=== PATIENT | male | born 1935 | race Caucasian/White ===

== ENCOUNTER 2020-05-24 09:58 | Outpatient (CLI) | payer MEDICARE, OTHER, SELFPAY ==
--- NOTE | ~2020-05-24 | DEXA_ITS ---
Bone Density Report Name: Mauricio Celeste Age: 85 Sex: Male Ethnicity: White Date of : 1935 Indication: osteopenia; monitoring treatment; parental hip fracture; Referring Provider: IGOR LOPEZ Study: Bone densitometry was performed. Exam Date: May 24, 2020 Accession number: [id number] Bone Density: Region BMD T-score Z-score Classification AP Spine (L1-L4) 0.968 -1.1 0.2 Osteopenia Femoral Neck (Left) 0.738 -1.4 0.3 Osteopenia Total Hip (Left) 0.959 -0.5 0.7 Normal Total Hip Bilateral Avg 0.980 -0.4 0.8 Normal Femoral Neck (Right) 0.767 -1.2 0.5 Osteopenia Total Hip (Right) 1.000 -0.2 1.0 Normal World Health Organization criteria for BMD impression classify patients as: Normal (T-score at or above -1.0), Osteopenia (T-score between -1.0 and -2.5), or Osteoporosis (T-score at or below -2.5). 10-year Fracture Risk: FRAX not reported because: Treated for osteoporosis Previous Exams: Region Exam Age BMD T-score BMD Change BMD Change Date g/cm2 vs Baseline vs Previous AP Spine(L1-L4) 05/24/2020 85 0.968 -1.1 -0.032(-3.2%)# 0.015(1.6%) 09/15/2014 79 0.953 -1.3 -0.047(-4.7%)# -0.062(-6.1%)# 10/21/2010 75 1.015 -0.7 0.015(1.5%) 0.015(1.5%) 02/17/2008 72 1.000 -0.8 Total Hip(Left) 05/24/2020 85 0.959 -0.5 -0.006(-0.6%)# -0.012(-1.2%) 09/15/2014 79 0.972 -0.4 0.006(0.7%)# -0.008(-0.9%)# 10/21/2010 75 0.980 -0.4 0.015(1.5%) 0.015(1.5%) 02/17/2008 72 0.965 -0.4 Total Hip(Right) 05/24/2020 85 1.000 -0.2 0.033(3.4%)# 0.028(2.8%)* 09/15/2014 79 0.972 -0.4 0.005(0.5%)# 0.004(0.4%)# 10/21/2010 75 0.968 -0.4 0.001(0.1%) 0.001(0.1%) 02/17/2008 72 0.967 -0.4 *Denotes significance at 95% confidence level, LSC for AP Spine = 0.022 g/cm2, LSC for Total Hip = 0.027 g/cm2 Clinical Information Provided by Patient: Parent has had a hip fracture Is being treated for osteoporosis Has used the following medications: Fosamax (i.e. alendronate) Patient maximum height was 67 Drinks caffeinated beverages Impression: The patient has low bone mass, based on the Left Femoral Neck T-score. The patient has risk factors, including: parental hip fracture. No significant bone loss was observed. Discussion: PATIENT UNDER TREATMENT WITH NO SIGNIFICANT BMD LOSS SINCE LAST EXAM. In an untreated patient, BMD typically declines with age. A lack of decline or gain is usually a sign t
== END 2020-05-24 09:59 | disposition home or self-care (01) ==
PROVIDERS: PCP Internal Medicine; Visit Provider Nurse Practitioner
DX: M81.0 Age-related osteoporosis without current pathological fracture (principal); M85.88 Other specified disorders of bone density and structure, other site; M85.852 Other specified disorders of bone density and structure, left thigh; M85.851 Other specified disorders of bone density and structure, right thigh
CPT/HCPCS: 77080

== ENCOUNTER → 2021-03-19 15:26 | Outpatient (REF) | payer MEDICARE, OTHER, SELFPAY | LOC: ANHLAB 15:26 | PROVIDERS: PCP Internal Medicine; Visit Provider Nurse Practitioner | DX: C44.41 Basal cell carcinoma of skin of scalp and neck (principal) | CPT/HCPCS: 88305 ==

== ENCOUNTER → 2021-05-13 09:55 | Outpatient (REF) | payer MEDICARE, OTHER, SELFPAY | LOC: ANHLAB 09:55 | PROVIDERS: PCP Internal Medicine; Visit Provider Nurse Practitioner | DX: C44.41 Basal cell carcinoma of skin of scalp and neck (principal) | CPT/HCPCS: 88305; 88331 ==

== ENCOUNTER 2021-05-21 08:36 | Outpatient (CLI) | payer MEDICARE, OTHER, SELFPAY ==
[2021-05-21 09:45] LABS: Hemoglobin A1C 8.5 % (<5.7)
[2021-05-21 09:46] LABS: Alanine Aminotransferase 25 U/L (4-50); Albumin Level 3.8 g/dL (3.5-5.1); Anion Gap 8 mmol/L (8-16); Aspartate Amino Transferase 26 U/L (17-59); Bilirubin,Total 0.6 mg/dL (0.2-1.3); Blood Urea Nitrogen 14 mg/dL (9-20); Calcium 9.1 mg/dL (8.4-10.2); Carbon Dioxide 28 mmol/L (22-30); Chloride 101 mmol/L (98-107); Estimated Glomerular Filt Rate > 60; Glucose 168 mg/dL (65-110); Potassium 4.5 mmol/L (3.4-5.0); Sodium 137 mmol/L (137-145)
[2021-05-21 09:47] LABS: Alkaline Phosphatase 67 U/L (38-126); Cholesterol 176 mg/dL (0-200); HDL Direct 42 mg/dL; Triglycerides 194 mg/dL (<150)
[2021-05-21 09:58] LABS: LDL Cholesterol Direct 84 mg/dL
[2021-05-21 10:41] LABS: Vitamin D 25 Hydroxy 43.2 ng/mL
== END 2021-05-21 08:37 | disposition home or self-care (01) ==
PROVIDERS: PCP Internal Medicine; Visit Provider Internal Medicine
DX: E11.9 Type 2 diabetes mellitus without complications (principal); E78.5 Hyperlipidemia, unspecified; I10 Essential (primary) hypertension; Z79.899 Other long term (current) drug therapy; E55.9 Vitamin D deficiency, unspecified
CPT/HCPCS: 36415; 80053; 80061; 82306; 83036

== ENCOUNTER 2021-11-04 11:18 | Outpatient (CLI) | payer MEDICARE, OTHER, SELFPAY ==
[2021-11-04 11:58] LABS: Alanine Aminotransferase 22 U/L (4-50); Alkaline Phosphatase 61 U/L (38-126); Anion Gap 10 mmol/L (8-16); Aspartate Amino Transferase 24 U/L (17-59); Bilirubin,Total 0.5 mg/dL (0.2-1.3); Blood Urea Nitrogen 17 mg/dL (9-20); Calcium 9.3 mg/dL (8.4-10.2); Carbon Dioxide 24 mmol/L (22-30); Chloride 102 mmol/L (98-107); Cholesterol 162 mg/dL (0-200); Estimated Glomerular Filt Rate > 60; Glucose 163 mg/dL (65-110); HDL Direct 47 mg/dL; Hemoglobin A1C 8.4 % (<5.7); Potassium 4.6 mmol/L (3.4-5.0); Sodium 136 mmol/L (137-145); Triglycerides 156 mg/dL (<150)
[2021-11-04 12:09] LABS: LDL Cholesterol Direct 84 mg/dL
== END 2021-11-04 11:19 | disposition home or self-care (01) ==
LOC: ANHLAB 11:25
PROVIDERS: PCP Internal Medicine; Visit Provider Nurse Practitioner
DX: E78.5 Hyperlipidemia, unspecified (principal); E11.9 Type 2 diabetes mellitus without complications
CPT/HCPCS: 36415; 80053; 80061; 83036

== ENCOUNTER 2023-03-14 14:06 | Inpatient (IN) | payer MEDICARE, OTHER, SELFPAY ==
[2023-03-14] VITALS (14 sets, daily range): BP systolic 101–130; BP diastolic 50–68; PULSE 64–88; RESP 14–20; TEMP 36.2–36.8; O2SAT 96–100; BMI 23.4
--- NOTE | ~2023-03-14 | US_ITS ---
EXAMINATION: US thoracentesis DATE: 03/15/2023 11:10 INDICATION: Left pleural effusion TECHNIQUE: The procedure and its risks and benefits were discussed with the patient's son. Potential risks discussed included bleeding, infection, and pneumothorax. The patient's son understood the risk s and agreed to proceed. The skin was prepared and draped in sterile fashion. 1% lidocaine was used f or local anesthesia. Under ultrasound guidance, a 5 Fr catheter with trochar was advanced into the le ft pleural effusion. Fluid was aspirated. The catheter was removed, and a dressing was applied. There were no immediate complications. FINDINGS: Ultrasound images demonstrate a left pleural effusion and the catheter within the fluid. IMPRESSION: 1. Successful ultrasound-guided thoracentesis yielding 1000 mL of clear yellow fluid. Reviewed, dictated and finalized at location A.
--- NOTE | ~2023-03-14 | XR_ITS ---
EXAMINATION: XR chest 1V portable Exam Date/Time: 03/14/2023 14:45 CDT HISTORY: weakness LOW O2 SATURATIONS Comparison: 03/28/2019. RESULT: Lines, tubes, and devices: None. Lungs and pleura: Mid and lower lung opacity on the left with significant lateral costophrenic angle blunting. Cardiomediastinal silhouette: Stable. Other: No acute osseous or upper abdominal finding. IMPRESSION: Large left pleural effusion. Left basilar atelectasis. Infection not excluded. Reviewed, dictated and finalized at location K.
--- NOTE | ~2023-03-14 | XR_ITS ---
EXAMINATION: [id number] DATE: 03/15/2023 11:02 INDICATION: Left pleural effusion, status post thoracentesis TECHNIQUE: AP and lateral views of the chest are obtained. COMPARISON: 03/14/2023 FINDINGS: There is a moderate-sized left pleural effusion with slight decrease in size postthoracente sis. Associated airspace opacities of the left mid and lower lung zone are stable. No pneumothorax is identified. The cardiac silhouette is obscured by the pleural effusion. There is moderate osteoarthr itis of the shoulders. There is moderate thoracic spondylosis. IMPRESSION: 1. Moderate size left pleural effusion slightly decreased in size postthoracentesis. No pneumothorax. 2. Stable airspace opacity of the left mid and lower lung zone, likely passive atelectasis. Reviewed, dictated and finalized at location A. IMPRESSION: 1. Moderate size left pleural effusion slightly decreased in size postthoracent esis. No pneumothorax. 2. Stable airspace opacity of the left mid and lower lung zone, likely passive atelectasis.
--- NOTE | ~2023-03-14 | US_ITS ---
EXAMINATION: US renal BI DATE: 03/15/2023 11:11 INDICATION: Acute kidney injury TECHNIQUE: Multiple grayscale and Doppler ultrasound images of the kidneys were obtained. COMPARISON: None. FINDINGS: The right kidney measures 10.2 x 4.6 x 5.6 cm. The left kidney measures 9.9 x 4.8 x 5.8 cm. The kidneys demonstrate normal parenchymal echogenicity. There is no hydronephrosis. The bladder is normal. IMPRESSION: 1. Normal kidneys without hydronephrosis. Reviewed, dictated and finalized at location A.
--- NOTE | ~2023-03-14 | CT_ITS ---
EXAMINATION: CT diagnostic chest wo con DATE: 03/14/2023 17:11 INDICATION: left pleural effusion TECHNIQUE: Computed tomography (CT) of the chest was performed with 100 mL Omnipaque-350 intravenous contrast. Automated exposure control and iterative reconstruction technique were employed. The dose-l ength product was 386.81 mGy-cm. COMPARISON: X-ray chest, same date. FINDINGS: CHEST: Thoracic aorta: No significant dilation. Moderate arch calcification. Lung parenchyma and airways: Considerable volume loss with consolidation in the left lower lobe. Depe ndent atelectasis in the left upper lobe. Thoracic inlet, axillae and chest wall: No thyroid or soft tissue mass. No axillary lymphadenopathy. Mediastinum: No mass or lymphadenopathy. Heart and pericardium: Mild cardiomegaly. No pericardial effusion. Coronary artery calcifications: Mild. Pleura: Large volume left pleural fluid collection, 7 Hounsfield unit density, no definite loculation . No definite pleural mass, but this determination is difficult without contrast. Upper abdomen: No significant finding. Thoracic bones: No acute osseous finding in the chest. IMPRESSION: Large volume, fluid density, nonloculated left pleural effusion. Significant left lower lobe consolid ation, likely representing atelectasis given the significant volume loss, noting that infection canno t be excluded by imaging. Reviewed, dictated and finalized at location K. IMPRESSION: Large volume, fluid density, nonloculated left pleural effusion. Significant le ft lower lobe consolidation, likely representing atelectasis given the signific ant volume loss, noting that infection cannot be excluded by imaging.
--- NOTE | 2023-03-14 14:18 | ECG_ITS ---
Measurements Intervals [place] Rate: 62 P: 44 [place]: 187 QRS: -42 QRSD: 86 T: 29 QT: 398 QTc: 405 Interpretive Statements SINUS RHYTHM VENTRICULAR PREMATURE COMPLEX INCOMPLETE RIGHT BUNDLE BRANCH BLOCK LOW QRS VOLTAGE IN PRECORDIAL LEADS BORDERLINE T WAVE ABNORMALITY- ANT/INF LEADS BASELINE ARTIFACT- I, II, III, AVR, AVF, V5 BORDERLINE ECG COMPARED TO ECG 03/28/2019 17:59:30 NO SIGNIFICANT CHANGES Electronically Signed On 03-14-2023 17:50:23 CDT by Zaki Herrmann D.O.
--- NOTE | 2023-03-14 14:42 | ED.GENADULT ---
HPI - General Adult General Chief complaint: Recheck/Abnormal Lab/Rx Stated complaint: low oxygen level Time Seen by Provider: 03/14/23 14:13 History of Present Illness HPI narrative: 87-year-old male presenting to the emergency department for evaluation of possible low oxygen. pen[facility]entiary states that they had a pulse ox of 50% on room air. EMS was called. When EMS arrived patient's pulse ox was stable in the high 90s. Upon arrival to the ED patient's pulse ox was 99% on room air. Patient denies any pain or complaints. Family was concerned because they state he has had increased weakness over the past few days. Patient denies any complaints at this time. Patient denies any weakness and denies any shortness of breath. Family did want the patient transferred for work due to the increased weakness. Related Data Home Medications Medication Instructions Recorded Confirmed krill 1,000 cap PO DAILY 03/19/21 03/14/23 [id number] 1,500 mg-165 mg-67.5 mg capsule (Krill Oil ([place] 3 and 6)) amlodipine 5 mg tablet 5 mg PO DAILY 03/14/23 03/14/23 buspirone 10 mg tablet 10 mg PO BID 03/14/23 03/14/23 donepezil 10 mg tablet 5 mg PO BID 03/14/23 03/14/23 losartan 100 mg tablet 100 mg PO DAILY 03/14/23 03/14/23 Allergies Allergy/AdvReac Type Severity Reaction Status Date / Time iodine Allergy Mild Hives Verified 03/14/23 14:06 SHELLFISH Allergy Mild hives Uncoded 03/14/23 14:06 Review of Systems Review of Systems: All systems reviewed & are unremarkable except as noted in HPI and below PMFSH Family History Family History Father Family history of primary malignant neoplasm of liver Mother Family history of malignant neoplasm of uterus Social History Social History Smoking status: Former smoker Alcohol intake: current Substance use: never Substance use type: does not use Lack of Transportation: No Lack of Food: Never True Current Housing: I Have Housing Concerned About Future Housing: No Difficulty Paying Gas/Electric Bills: No Difficulty Paying for Meds: No Currently Unemployed: No Education: Don't Know Difficulty w/ Childcare or Family Care: No Living arrangements: with family Occupation/Education: retired Gender identity (if verbalized by the patient): Male Sexual Orientation (if Verbalized by the Patient): Straight or Heterosexual Spiritual care concerns: No Exam Narrative: APPEARANCE: Well appearing, no pain, no distress, well-nourished. HEAD: normocephalic, atraumatic. EYES: PERRLA/EOMI, conjunctivae clear. NOSE: Normal no drainage NECK: Supple. No adenopathy, no masses. RESPIRATORY: Airway patent, respirations nonlabored. Clear to auscultation bilaterally, no rales, rhonchi, wheezing. CARDIOVASCULAR: Regular rate and rhythm without murmurs rubs or gallops. ABDOMINAL: Soft, nontender, nondistended, normal bowel sounds MUSCULOSKELETAL: Moves all extremities. Strength/ROM intact, No edema, No calf tenderness. NEURO: Alert. Cranial nerves II through XII intact. Grossly intact SKIN: Warm, dry. Normal Color Course Course Emergency Course: 87-year-old male presenting for evaluation of hypoxia and increased generalized weakness. Patient has not been hypoxic in the emergency room. Patient is afebrile with no leukocytosis. Patient's hemoglobin is stable at 12.1. Patient does have a new [place] with a creatinine of 2.7. UA shows no evidence of urinary tract infection and patient was negative for COVID influenza RSV. Chest x-ray did show a large left-sided pleural effusion. CT without contrast was ordered to further evaluate the pleural effusion. CT showed large volume fluid density nonloculated left pleural effusion with some left lower lobe consolidation. CT could not exclude infection but patient is afebrile with no leukocytosis. Patient w
[2023-03-14 15:04] LABS: Basophils Percent Auto 0.1 % (0.2-1.2); Eosinophils Percent Auto 0.5 % (0-4.4); Hematocrit 38.1 % (42.0-52.0); Hemoglobin 12.1 g/dL (14.0-18.0); Immature Granulocyte Absolute 0.11 K/mm3 (0.00-0.031); Immature Granulocyte Percent A 1.5 % (0-0.5); Immature Platelet Fraction Pct 14.8 % (0.9-11.2); Lymphocytes Absolute Auto 1.24 K/mm3 (0.9-3.2); Lymphocytes Percent Auto 16.8 % (18.3-44.2); Mean Corpuscular HGB Conc 31.8 g/dl (32-36); Mean Corpuscular Hemoglobin 32.7 pg (26-34); Mean Platelet Volume 12.9 fl (7.4-10.4); Monocytes Percent Auto 13.5 % (2.6-8.5); Neutrophils Percent Auto 67.6 % (45.5-73.1); Platelet Count Result 183 k/mm3 (150-375); Red Cell Distribution Width 14.3 % (11.5-14.5); White Blood Count 7.4 K/mm3 (4.5-10.0)
[2023-03-14 15:17] LABS: Alanine Aminotransferase 34 U/L (6-50); Albumin Level 4.2 g/dL (3.5-5.1); Alkaline Phosphatase 61 U/L (38-126); Anion Gap 13 mmol/L (8-16); Aspartate Amino Transferase 25 U/L (17-59); Bilirubin,Total 0.4 mg/dL (0.2-1.3); Blood Urea Nitrogen 48 mg/dL (9-20); Calcium 8.7 mg/dL (8.4-10.2); Carbon Dioxide 21 mmol/L (22-30); Chloride 103 mmol/L (98-107); Estimated CRCL calculation 17 ml/min; Estimated Glomerular Filt Rate 23; Glucose 180 mg/dL (65-110); Potassium 4.5 mmol/L (3.4-5.0); Sodium 137 mmol/L (137-145)
[2023-03-14 15:35] LABS: Influenza A QL RT-PCR Negative (Negative); Influenza B QL RT-PCR Negative (Negative); RSV RNA, RT-PCR Negative (Negative); SARS-CoV-2 RNA PCR Negative (Negative)
[2023-03-14] MEDS: SODIUM CHLORIDE 0.9% IV 1,000 ML 999 ML IV CONT (15:40)
[2023-03-14 17:38] LABS: Appearance Urine Cloudy (Clear); Bacteria Urine None Seen /hpf; Bilirubin Urine Negative (Negative); Blood Urine Negative (Negative); Color Urine Yellow (Yellow); Glucose Urine UA Negative (Negative); Ketones Urine Trace mg/dL (Negative); Leukocyte Esterase Ur Negative LEU/UL (Negative); Need Manual Microscopic Reviewed; Nitrate Urine Negative (Negative); Protein Urine Negative (Negative); RBC Urine 0-2 /hpf (0-2); Specific Grav Ur 1.019 (1.001-1.035); Squamous Epithelial Cell Urine None seen /hpf (Few); Urobilinogen Urine 0.2 mg/dL (<2.0); WBC Urine 0-5 /hpf
[2023-03-14 17:40] LABS: Add Urine Microscopic? YES
--- NOTE | 2023-03-14 18:17 | ADMGEN ---
This patient, Mauricio Celeste, was admitted to [facility] Surg Room 306-02 @ 1817. Patient/family oriented to hospital policies and general routines including ID bracelet, bed and alarms, visiting hours, pain management, procedures, bathroom and other care routines, personal items, smoking policy, room service/diet, and visiting hours. Information on how to activate the Rapid Response Team has been discussed. Patient/Family are encouraged to report perceived risks to care and to ask questions if they do not understand what they are told or what they should do.
--- NOTE | 2023-03-14 18:18 | PM.IMHP ---
H&P: HPI History of Present Illness Date/Time: 03/14/23 17:50 Chief Complaint: Low oxygen saturation. Narrative: This is an 87-year-old male with with dementia, diabetes, hypertension, and hyperlipidemia who presented to the emergency department via EMS from [facility] for evaluation low oxygen saturations. The patient is not the best historian due to his underlying dementia and some of the following history is supplemented via a review of his electronic medical records as well as discussions with his daughter Sherrie was at bedside, with the patient's permission. Sherrie sees her dad every week and over the past 3 weeks or so she reports that he has been going downhill. By that she means that he has not been eating well and is occasionally refusing food though he denies nausea and vomiting. He will eat if they go out for lunch or dinner somewhere, however. He has lost about 30 lb and he seems to be getting progressively more weak. This morning he reportedly had a pulse ox of 50% on room air and on EMS arrival he was 99% on room air. Family members requested that he be brought in for evaluation due to his recent decline. He was told to push the fluids by the nurse practitioner at his [facility] as he was likely dehydrated. Quintanilla catheter inserted in the ED yielded only 160 mL of urine. He has not been started on any recent medications and his metformin was discontinued due to the increase in his creatinine. Chest x-ray showed a large pleural effusion and a subsequent chest CT showed a large, non loculated left pleural effusion with significant left lower lobe consolidation likely representing atelectasis however infection cannot be excluded. In the ED he was given a L of normal saline and he is being admitted in this setting for evaluation of the pleural effusion, kidney injury, and weight loss. At the time my evaluation he does not have any specific complaints and he denies headache, fever, chills, sweats, cold and flu symptoms, chest pain, shortness a breath, epigastric and abdominal pain, bloating, belching, nausea, vomiting, dysuria, diarrhea, melena, and hematochezia. Review of Systems Review of Systems: Twelve systems were negative except for as per HPI. 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 History of cataract extraction Family History Family History Father Family history of primary malignant neoplasm of liver Mother Family history of malignant neoplasm of uterus Social History Social History (Updated 03/14/23 @ 22:31 by Marlen Miles PA-C) Social History: Healthcare power of corporate attorney: Carlos Celeste, reyes. Code status: Full code. Smoking status: Former smoker Alcohol intake: current Alcohol use details: Occasional wine. Substance use: never Substance use type: does not use Lack of Transportation: No Lack of Food: Never True Current Housing: I Have Housing Concerned About Future Housing: No Difficulty Paying Gas/Electric Bills: No Difficulty Paying for Meds: No Currently Unemployed: No Education: Don't Know Difficulty w/ Childcare or Family Care: No Living arrangements: with family Additional living arrangements comments: Resident at [facility]. Occupation/Education: retired Spiritual care concerns: No Meds Home Medications and Allergies Home Medications Medication Instructions Recorded Confirmed Type krill 1,000 cap PO DAILY 03/19/21 03/14/23 History [id number]-astax 1,500
--- NOTE | 2023-03-14 23:11 | PC.NURSE ---
PT. is confused and needs to be constantly reminded he is in the hospital. Pt. has pulled out his IV and removed the telemetry box.
[2023-03-15] VITALS (9 sets, daily range): BP systolic 112–125; BP diastolic 55–62; PULSE 59–106; RESP 18–20; TEMP 36.6; O2SAT 95–98
[2023-03-15] MEDS: DONEPEZIL HCL 5 MG TABLET PO ×3 (00:08→17:51)
[2023-03-15] MEDS: busPIRone HCL 10 MG TABLET PO ×3 (00:08→17:51)
[2023-03-15] MEDS: SODIUM CHLORIDE 0.9% IV 1,000 ML 75 ML IV CONT (00:49)
[2023-03-15] MEDS: AMPICILLIN SULB 1.5 GM/NS 50ML 1.5 GM/50 ML VIAL IVPB ×3 (02:21→23:59)
[2023-03-15 06:08] LABS: Hematocrit 30.8 % (42.0-52.0); Hemoglobin 9.9 g/dL (14.0-18.0); Mean Corpuscular HGB Conc 32.1 g/dl (32-36); Mean Corpuscular Hemoglobin 32.6 pg (26-34); Mean Corpuscular Volume 101.3 fl (80-100); Mean Platelet Volume 12.9 fl (7.4-10.4); Platelet Count Result 162 k/mm3 (150-375); Red Blood Count 3.04 M/mm3 (4.6-6.20); Red Cell Distribution Width 14.1 % (11.5-14.5)
[2023-03-15 06:28] LABS: Prothrombin Time 13.7 Seconds (11.1-14.7)
[2023-03-15 06:52] LABS: Alanine Aminotransferase 12 U/L (6-50); Albumin Level 3.3 g/dL (3.5-5.1); Alkaline Phosphatase 44 U/L (38-126); Amylase 58 U/L (30-110); Anion Gap 8 mmol/L (8-16); Aspartate Amino Transferase 20 U/L (17-59); Bilirubin,Total 0.5 mg/dL (0.2-1.3); Blood Urea Nitrogen 44 mg/dL (9-20); Calcium 7.9 mg/dL (8.4-10.2); Carbon Dioxide 22 mmol/L (22-30); Chloride 106 mmol/L (98-107); Cholesterol 112 mg/dL (0-200); Creatine Kinase 62 U/L (55-170); Estimated CRCL calculation 21 ml/min; Estimated Glomerular Filt Rate 29; Glucose 103 mg/dL (65-110); Lactate Dehydrogenase 263 U/L (120-246); Magnesium 1.8 mg/dL (1.6-2.3); Phosphorus 2.9 mg/dL (2.5-4.5); Potassium 4.1 mmol/L (3.4-5.0); Sodium 136 mmol/L (137-145); Triglycerides 124 mg/dL (<150)
[2023-03-15 06:55] LABS: Hemoglobin A1C 6.8 % (<5.7)
[2023-03-15 07:43] LABS: Glucose Point of Care 106 mg/dl (65-105)
--- NOTE | 2023-03-15 10:51 | PM.IMPN ---
Progress Note: A&P Assessment and Plan (1) Pleural effusion on left: Code(s): J90 - Pleural effusion, not elsewhere classified Status: Acute Assessment and Plan: Etiology not entirely clear; he has no history of heart failure or malignancy. Diagnostic thoracentesis ordered for today.. He has been started on empiric Unasyn until parapneumonic infection can be ruled out. I suspect he was hypoxic earlier this morning when up and moving due to fluid shifting. He is currently on room air with SpO2 in the upper 90s. (2) Acute kidney injury: Code(s): N17.9 - Acute kidney failure, unspecified Status: Acute Assessment and Plan: BUN and creatinine were elevated on labs done on 03/07/2023 as an outpatient as detailed in HPI. Quintanilla catheter has been inserted and that he yielded only 160 mL so he is not retaining urine. He may very well be pre renal given reports of poor appetite and oral intake for the last 3 weeks or so. Continue cautious IV fluid rehydration with close monitoring of volume status. Urine electrolytes and renal ultrasound ordered for further evaluation. Avoid nephrotoxic agents. (3) Weight loss: Code(s): R63.4 - Abnormal weight loss Status: Acute Assessment and Plan: May be related to progressive dementia, failure to thrive, occult malignancy. Dietitian recommendations appreciated. (4) Type 2 diabetes mellitus without complication, without long-term current use of insulin: Code(s): E11.9 - Type 2 diabetes mellitus without complications Status: Acute Assessment and Plan: Recently taken off metformin given worsening renal function. Initiate sliding scale insulin, Accu-Cheks, and hypoglycemic protocol. Check hemoglobin A1c. (5) Dementia: Code(s): F03.90 - Unspecified dementia, unspecified severity, without behavioral disturbance, psychotic disturbance, mood disturbance, and anxiety Status: Acute Assessment and Plan: Continue donepezil. (6) Benign essential hypertension: Code(s): I10 - Essential (primary) hypertension Status: Acute Assessment and Plan: Blood pressures were reviewed and they are stable. Continue amlodipine. Hold losartan given renal failure. Plan Medical decision making narrative ? History obtained from: Patient. ? History from independent sources: Patient's daughter Sherrie, with the patient's permission. ? External chart review: Reviewed. ? New problems addressed: Acute kidney injury, left pleural effusion, weight loss. ? Chronic illnesses addressed: Hypertension, diabetes. ? Independent interpretation of studies: Labs, imaging, EKG, and all reports were personally reviewed. ? Diagnostic tests considered but not ordered: None. ? Shared decision making: Findings were reviewed and discussed with the patient and his daughter, including plans for further workup and treatment options. Questions solicited and answered to satisfaction. Patient agrees with current plan of care. Subjective Date/time seen: 03/15/23 10:51 Interval history: No new complaints. Exam Narrative: General: Mildly ill-appearing gentleman in the semi-Munoz position in bed. Weight: 70 kg. BMI: 23.5. HEENT: Normocephalic, atraumatic. PERRL, EOMI. Sclera anicteric. Tacky mucous membranes. Neck: Supple. No JVD or lymphadenopathy. Respiratory: He was mildly tachypneic when transferring from the gurney to his bed but rebounded quickly. He is able to speak in full sentences and does not appear in respiratory distress. Diminished lung sounds at the left base about [address] Cardiovascular: Regular rate and rhythm with S1-S2. Gastrointestinal: Abdomen is soft, nontender, and nondistended with positive bowel sounds. Skin: Warm and dry. Slightly pale. Extremities: No cyanosis, clubbing, or edema. Radial and pedal pulses intact. Neurological: Alert to name and date of . He is aware that he is in the hos
[2023-03-15 11:04] LABS: pH Pleural Fluid 7.423 (7.210-7.500)
[2023-03-15 11:46] LABS: Glucose Point of Care 120 mg/dl (65-105)
[2023-03-15 12:11] LABS: Appearance Pleural Fluid Hazy (Clear); Color Pleural Fluid Yellow (Colorless); Lymphocytes Pleural Fluid 71 %; Macrophages Pleural Fluid 7 %; Monocytes Pleural Fluid 16 %; Neutrophils Pleural Fluid 3 % (0-25); Pleural fluid source Pleural fluid
[2023-03-15 12:12] LABS: Mesothelial Cells Pleural Flui 3 %
[2023-03-15] MEDS: ROSUVASTATIN 10 MG TABLET PO (15:21)
[2023-03-15] MEDS: amLODIPine BESYLATE 5 MG TABLET PO (15:22)
[2023-03-15 16:51] LABS: Glucose Point of Care 173 mg/dl (65-105)
[2023-03-15 21:27] LABS: Glucose Point of Care 124 mg/dl (65-105)
[2023-03-16] VITALS: PULSE 68
[2023-03-16 04:00] VITALS: PULSE 72
--- NOTE | 2023-03-16 05:46 | PC.NURSE ---
PT. has pulled out his 7th IV in the last two days. Called hospitalist and and she said it was ok to not have a IV at this time.
[2023-03-16 06:00] VITALS: BP 138/75; PULSE 72; RESP 18; TEMP 36.6; O2SAT 98
[2023-03-16 07:28] LABS: Glucose Point of Care 108 mg/dl (65-105)
[2023-03-16 08:01] VITALS: PULSE 64
[2023-03-16] MEDS: amLODIPine BESYLATE 5 MG TABLET PO (10:11)
[2023-03-16] MEDS: DONEPEZIL HCL 5 MG TABLET PO (10:11)
[2023-03-16] MEDS: busPIRone HCL 10 MG TABLET PO (10:11)
[2023-03-16] MEDS: ROSUVASTATIN 10 MG TABLET PO (10:12)
--- NOTE | 2023-03-16 10:48 | PM.DS ---
DS: Admitting Diagnosis Discharge Date March 16, 2023 Admitting Diagnosis shortness of breath DS: Discharge Diagnosis Discharge Diagnosis (1) Pleural effusion on left: Code(s): J90 - Pleural effusion, not elsewhere classified Status: Acute Assessment and Plan: Etiology not entirely clear; he has no history of heart failure or malignancy. Diagnostic thoracentesis ordered for today.. He has been started on empiric Unasyn until parapneumonic infection can be ruled out. I suspect he was hypoxic earlier this morning when up and moving due to fluid shifting. He is currently on room air with SpO2 in the upper 90s. (2) Acute kidney injury: Code(s): N17.9 - Acute kidney failure, unspecified Status: Acute Assessment and Plan: BUN and creatinine were elevated on labs done on 03/07/2023 as an outpatient as detailed in HPI. Quintanilla catheter has been inserted and that he yielded only 160 mL so he is not retaining urine. He may very well be pre renal given reports of poor appetite and oral intake for the last 3 weeks or so. Continue cautious IV fluid rehydration with close monitoring of volume status. Urine electrolytes and renal ultrasound ordered for further evaluation. Avoid nephrotoxic agents. (3) Weight loss: Code(s): R63.4 - Abnormal weight loss Status: Acute Assessment and Plan: May be related to progressive dementia, failure to thrive, occult malignancy. Dietitian recommendations appreciated. (4) Type 2 diabetes mellitus without complication, without long-term current use of insulin: Code(s): E11.9 - Type 2 diabetes mellitus without complications Status: Acute Assessment and Plan: Recently taken off metformin given worsening renal function. Initiate sliding scale insulin, Accu-Cheks, and hypoglycemic protocol. Check hemoglobin A1c. (5) Dementia: Code(s): F03.90 - Unspecified dementia, unspecified severity, without behavioral disturbance, psychotic disturbance, mood disturbance, and anxiety Status: Acute Assessment and Plan: Continue donepezil. (6) Benign essential hypertension: Code(s): I10 - Essential (primary) hypertension Status: Acute Assessment and Plan: Blood pressures were reviewed and they are stable. Continue amlodipine. Hold losartan given renal failure. Plan Medical decision making narrative ? History obtained from: Patient. ? History from independent sources: Patient's daughter Sherrie, with the patient's permission. ? External chart review: Reviewed. ? New problems addressed: Acute kidney injury, left pleural effusion, weight loss. ? Chronic illnesses addressed: Hypertension, diabetes. ? Independent interpretation of studies: Labs, imaging, EKG, and all reports were personally reviewed. ? Diagnostic tests considered but not ordered: None. ? Shared decision making: Findings were reviewed and discussed with the patient and his daughter, including plans for further workup and treatment options. Questions solicited and answered to satisfaction. Patient agrees with current plan of care. DS: Summary Hospital Course Hospital Course: patient is an 87-year-old gentleman with Alzheimer's dementia. Came in with some shortness of breath found have a small pleural effusion. This was tapped in did not appear to be an exudative process. Nonetheless cultures are still pending. Studies are also pending. He is breathing much better not requiring any oxygen is ambulating in the nava. He can be discharged. He will be treated for possible pneumonia with Augmentin. He did not display any trouble swallowing while in the hospital. Otherwise his primary care physician will need to follow up on the studies. Patient can be discharged back to his facility Time Spent with Patient Time attestation: Total time spent providing and/or coordinating discharge services: Exam Narrative: General: Mildly ill-appearing g
[2023-03-16 11:52] LABS: Glucose Point of Care 181 mg/dl (65-105)
[2023-03-16 12:03] VITALS: PULSE 65
--- NOTE | 2023-03-16 13:41 | PC.NURSE ---
Pt is A&O to self. Pt discharged to [facility] by way of son. Report called to nurse at 1242. Pt had no IV access during shift. Provider notified. Pt was monitored for any changes in status during this shift. Pt expresses no needs at this time and had no reports of pain. Pt taken to vehicle by wheel chair.
[2023-03-19 20:00] LABS: Glucose Pleural Fluid 114 mg/dL; LDH Pleural Fluid 84 U/L; Total Protein Pleural Fluid 4.3 g/dL
[2023-03-19 22:23] LABS: Albumin Pleural Fluid 2.2 g/dL
[2023-03-20 13:07] LABS: Amylase, Pleural Fluid 42 U/L
== END 2023-03-16 13:30 | DRG 186 ==
LOC: ANHED 17:34 → ANH3MEDSUR 17:57
PROVIDERS: Emergency Medicine; Physician Assistant; Admitting Provider Student in an Organized Health Care Education/Training Program; Emergency Provider Emergency Medicine; PCP Nurse Practitioner; Visit Provider Chiropractor
DX: J90 Pleural effusion, not elsewhere classified (principal); J18.9 Pneumonia, unspecified organism; N17.9 Acute kidney failure, unspecified; R63.4 Abnormal weight loss; R62.7 Adult failure to thrive; Z68.25 Body mass index [BMI] 25.0-25.9, adult; E11.9 Type 2 diabetes mellitus without complications; E86.0 Dehydration; R09.02 Hypoxemia; Z20.822 Contact with and (suspected) exposure to COVID-19; I10 Essential (primary) hypertension; G30.9 Alzheimer's disease, unspecified; F02.80 Dementia in other diseases classified elsewhere, unspecified severity, without behavioral disturbance, psychotic disturbance, mood disturbance, and anxiety; M81.0 Age-related osteoporosis without current pathological fracture; E55.9 Vitamin D deficiency, unspecified; E78.2 Mixed hyperlipidemia; Z87.891 Personal history of nicotine dependence
CPT/HCPCS: 32555; 36415; 71045; 71250; 76775; 80053; 81001; 82042; 82150; 82465; 82550; 82945; 82948; 83036; 83615; 83735; 83986; 84100; 84157; 84311; 84443; 84478; 85025; 85027; 85055; 85610; 87070; 87075; 87205; 87637; 88108; 88184; 88305; 89051; 93005; 96361; 96365; 97162; 97165; 97530; 99285; A9270; G0378; J0295; J7030

== ENCOUNTER 2023-04-09 10:32 | Outpatient (CLI) | payer MEDICARE, OTHER, SELFPAY ==
--- NOTE | ~2023-04-09 | XR_ITS ---
XR chest 2V 04/09/2023 11:01 Indication: Status post thoracentesis. Procedure: PA and lateral views of the chest Comparison: Comparison to multiple prior studies sequentially, with oldest reviewed study dated 06/2011. Findings: Large left pleural effusion with underlying compressive atelectasis. No pneumothorax. Right lung clear. No acute osseous abnormality. Impression: 1: Arch left pleural effusion with underlying compressive atelectasis. Reviewed, dictated and finalized at location L. Impression: 1: Arch left pleural effusion with underlying compressive atelectasis.
[2023-04-09 11:06] LABS: Basophils Percent Auto 0.2 % (0.2-1.2); Eosinophils Absolute Auto 0.1 K/mm3 (0-0.3); Hematocrit 28.8 % (42.0-52.0); Hemoglobin 8.8 g/dL (14.0-18.0); Immature Granulocyte Absolute 0.06 K/mm3 (0.00-0.031); Lymphocytes Absolute Auto 1.47 K/mm3 (0.9-3.2); Lymphocytes Percent Auto 23.7 % (18.3-44.2); Mean Corpuscular HGB Conc 30.6 g/dl (32-36); Mean Corpuscular Hemoglobin 31.4 pg (26-34); Mean Corpuscular Volume 102.9 fl (80-100); Monocytes Absolute Auto 0.9 K/mm3 (0.1-0.6); Neutrophils Absolute Auto 3.7 K/mm3 (1.3-6.7); Neutrophils Percent Auto 60.1 % (45.5-73.1); Platelet Count Result 266 k/mm3 (150-375); Red Cell Distribution Width 15.7 % (11.5-14.5); White Blood Count 6.2 K/mm3 (4.5-10.0)
[2023-04-09 11:14] LABS: Alanine Aminotransferase 17 U/L (6-50); Albumin Level 3.3 g/dL (3.5-5.1); Alkaline Phosphatase 52 U/L (38-126); Anion Gap 10 mmol/L (8-16); Aspartate Amino Transferase 20 U/L (17-59); Bilirubin,Total 0.6 mg/dL (0.2-1.3); Blood Urea Nitrogen 32 mg/dL (9-20); Carbon Dioxide 27 mmol/L (22-30); Chloride 104 mmol/L (98-107); Estimated Glomerular Filt Rate 32; Glucose 157 mg/dL (65-110); Sodium 141 mmol/L (137-145)
== END 2023-04-09 10:33 | disposition home or self-care (01) ==
PROVIDERS: PCP Family Medicine; Visit Provider Family Medicine
DX: E11.9 Type 2 diabetes mellitus without complications (principal); E78.2 Mixed hyperlipidemia; I10 Essential (primary) hypertension; F03.90 Unspecified dementia, unspecified severity, without behavioral disturbance, psychotic disturbance, mood disturbance, and anxiety; J90 Pleural effusion, not elsewhere classified; R53.1 Weakness; E55.9 Vitamin D deficiency, unspecified
CPT/HCPCS: 36415; 71046; 80053; 85025

== ENCOUNTER 2023-04-13 13:24 | Outpatient (CLI) | payer MEDICARE, OTHER, SELFPAY ==
[2023-04-13] VITALS (7 sets, daily range): BP systolic 112–136; BP diastolic 49–64; PULSE 48–74; RESP 20; O2SAT 98–99; BMI 30.3
--- NOTE | ~2023-04-13 | XR_ITS ---
[id number] 04/13/2023 14:42 Indication: Status post thoracentesis. Procedure: AP portable chest Comparison: No prior studies for comparison. Findings: Large left pleural effusion with underlying compressive atelectasis. Right lung is clear. N o acute osseous abnormality. No pneumothorax identified. Impression: 1: Large left pleural effusion with underlying compressive atelectasis. Reviewed, dictated and finalized at location [] Impression: 1: Large left pleural effusion with underlying compressive atelectasis.
--- NOTE | ~2023-04-13 | US_ITS ---
EXAMINATION: US thoracentesis DATE: 04/13/2023 14:57 INDICATION: Left pleural effusion TECHNIQUE: The procedure and its risks and benefits were discussed with the patient. Potential risks discussed included bleeding, infection, and pneumothorax. The patient understood the risks and agreed to proceed. The skin was prepped and draped in sterile fashion. 1% lidocaine was used for local anes thesia. Under ultrasound guidance, a 5 Fr catheter with trochar was advanced into the left pleural ef fusion. Fluid was aspirated. The catheter was removed, and a dressing was applied. There were no imme diate complications. FINDINGS: Ultrasound images demonstrate a moderate to large left pleural effusion and the catheter within the f luid. IMPRESSION: 1. Successful ultrasound-guided thoracentesis yielding 1000 mL of clear yellow fluid. Reviewed, dictated and finalized at location A.
--- NOTE | 2023-04-13 12:33 | PC.NURSE ---
Pre Radiology instructions Report to the outpatient [facility] on date 04/13/23 at time __SON CAROLINA STATES 1345 PER X-RAY for procedure Time: 1430____ YOU MAY BE MONITORED AT HOSPITAL FOR UP TO 4 HOURS AFTER YOUR PROCEDURE. A visitor will be allowed to accompany the patient into the hospital. You and your visitor will be asked to self-screen and do not enter if you have any COVID symptoms. A mask is OPTIONAL within the hospital. Patients are to have no food or drink 6 hours prior to procedure time Driving will be restricted after the procedure, you must have a person to drive you home. NO LABS NEEDED Labs will be drawn in preop area and once reviewed, you will be taken to radiology area for procedure. When the procedure is completed, you will be taken to outpatient where you will be monitored for several hours. You may have one visitor in this area. Other than holding anti-coagulants, patient may take other medication(s) as scheduled. Prior to your appointment date patients are instructed to hold anti-coagulants after discussing with ordering provider to stop. If unable to discontinue anti-coagulants please notify radiologist. ? No aspirin or warfarin (Coumadin) for 7 days prior to the procedure. ? No clopidogrel (Plavix), ticagrelor (Brilinta), prasugrel (Effient) or dabigatran (Pradaxa) for 5 days prior to the procedure. ? No rivaroxaban (Xarelto), apixaban (Eliquis), dipyridamole (Aggrenox or Persantine) or cilostazol (Pletal) for 2 days prior to the procedure. Medications to discontinue per physician: Date to take last dose: Please leave all valuables, including medications, at home the day of procedure. The hospital will not accept responsibility for valuables. Wear comfortable, loose fitting clothing.? Follow any additional instructions given to you from ordering provider. Telephone instructions given to __PT'S SON CAROLINA (POA) and asked if any additional questions and then verbalized understanding. Patient advised to call scheduling provider office or registration scheduling [phone] if any additional questions.
== END 2023-04-13 16:30 | disposition home or self-care (01) ==
PROVIDERS: Radiology Diagnostic Radiology; PCP Family Medicine; Visit Provider Family Medicine
DX: J90 Pleural effusion, not elsewhere classified (principal); R06.02 Shortness of breath; E11.9 Type 2 diabetes mellitus without complications
CPT/HCPCS: 32555

== ENCOUNTER 2023-04-29 09:42 | Outpatient (CLI) | payer MEDICARE, OTHER, SELFPAY ==
[2023-04-29 10:01] LABS: Mean Corpuscular Hemoglobin 32.4 pg (26-34); Mean Corpuscular Volume 104.3 fl (80-100); Mean Platelet Volume 11.1 fl (7.4-10.4); Platelet Count Result 355 k/mm3 (150-375); Red Blood Count 2.78 M/mm3 (4.6-6.20); White Blood Count 6.2 K/mm3 (4.5-10.0)
[2023-04-29 10:11] LABS: Alanine Aminotransferase 15 U/L (6-50); Albumin Level 3.5 g/dL (3.5-5.1); Alkaline Phosphatase 70 U/L (38-126); Anion Gap 8 mmol/L (8-16); Aspartate Amino Transferase 21 U/L (17-59); Bilirubin,Total 0.5 mg/dL (0.2-1.3); Blood Urea Nitrogen 23 mg/dL (9-20); Calcium 8.4 mg/dL (8.4-10.2); Carbon Dioxide 26 mmol/L (22-30); Chloride 106 mmol/L (98-107); Estimated Glomerular Filt Rate 44; Glucose 123 mg/dL (65-110); Potassium 3.5 mmol/L (3.4-5.0); Sodium 140 mmol/L (137-145)
== END 2023-04-29 09:43 | disposition home or self-care (01) ==
PROVIDERS: PCP Family Medicine; Visit Provider Family Medicine
DX: E55.9 Vitamin D deficiency, unspecified (principal); N18.9 Chronic kidney disease, unspecified; D64.9 Anemia, unspecified
CPT/HCPCS: 36415; 80053; 85027

== ENCOUNTER 2023-05-27 12:36 | Outpatient (CLI) | payer MEDICARE, OTHER, SELFPAY ==
--- NOTE | 2023-05-27 12:56 | ECHO_ITS ---
Patient Info Name: Mauricio Celeste Age: 88 years : 1935 Gender: Male Ht: 64 in Wt: 170 lbs BSA: 1.89 m2 HR: 78 bpm BP: 163 / 80 mmHg Technical Quality: Fair Exam Date: 05/27/2023 1:29 PM Exam Location: [facility] Patient Status: Outpatient Admit Date: 05/27/2023 Staff Ordering Physician: Lyla Guy MD Fitting Room Inspector: Chantelle Rivera RDCS Attending Provider: Lyla Guy MD Referring Physician: Brooks MILLER; Exam Type: CA echo doppler color flow Study Info Indications - pleural effusion sob pre thoracentesis Complete two-dimensional, color flow and Doppler transthoracic echocardiogram is performed. Summary 1. Complete two-dimensional, color flow and Doppler transthoracic echocardiogram is performed. 2. Left ventricular chamber dimension is normal. 3. Left ventricular systolic function is normal, estimated at 60-65%. 4. The left ventricular diastolic function is grade I diastolic dysfunction. 5. E/e' 10 is mildly elevated. 6. Left atrial chamber dimension is moderately enlarged. 7. Right atrial chamber dimension is mildly enlarged. 8. There is mild tricuspid valve regurgitation. 9. Moderate pulmonary hypertension, estimated pulmonary arterial systolic pressure is 52 mmHg. 10. Large pleural effusion bilaterally. 11. Large echogenic masses in both lungs appear to be adherent to pericardial or pleural membrane. Differential includes coagulated fibrinous material from chronicity of fluid or tumor. Consider CT chest for correlation. Left Ventricle E/e' 10 is mildly elevated. Left ventricular chamber dimension is normal. Left ventricular systolic function is normal, estimated at 60-65%. The left ventricular diastolic function is grade I diastolic dysfunction. Right Ventricle Right ventricular systolic function is normal and with normal TAPSE 2.0 cm. Right ventricular chamber dimension is normal. Left Atria Left atrial chamber dimension is moderately enlarged. Right Atria Right atrial chamber dimension is mildly enlarged. Aortic Valve The aortic valve is trileaflet. There is no aortic valve stenosis. There is no aortic valve regurgitation. Pulmonic Valve There is no pulmonic regurgitation. Mitral Valve There is no mitral valve stenosis. There is no mitral valve regurgitation. Tricuspid Valve There is mild tricuspid valve regurgitation. Moderate pulmonary hypertension, estimated pulmonary arterial systolic pressure is 52 mmHg. Pericardium/Pleural Large pleural effusion bilaterally. Large echogenic masses in both lungs appear to be adherent to pericardial or pleural membrane. Differential includes coagulated fibrinous material from chronicity of fluid or tumor. Consider CT chest for correlation. There is no pericardial effusion. Inferior Vena Cava Normal inferior vena cava with >50% collapse upon inspiration consistent with normal right atrial pressure, 5 mmHg. Aorta The aortic root size at the sinus of Valsalva is normal. Left Ventricular Outflow Tract Name Value Normal LVOT 2D LVOT Diameter 2.1 cm LVOT Doppler LVOT Peak Gradient 4 mmHg LVOT Mean Gradient 3 mmHg LVOT VTI 25 cm
== END 2023-05-27 12:37 | disposition home or self-care (01) ==
LOC: ANHCARD 12:38
PROVIDERS: PCP Family Medicine; Visit Provider Internal Medicine Critical Care Medicine
DX: J90 Pleural effusion, not elsewhere classified (principal); R06.02 Shortness of breath; I08.3 Combined rheumatic disorders of mitral, aortic and tricuspid valves
CPT/HCPCS: 93306

== ENCOUNTER 2023-05-28 10:51 | Outpatient (CLI) | payer MEDICARE, OTHER, SELFPAY ==
[2023-05-05 11:07] VITALS: BMI 30.4
--- NOTE | 2023-05-05 12:25 | PC.NURSE ---
Pre Radiology instructions Report to the outpatient [facility] on date _05/06/23____ at time __11:00AM for procedure Time: _1:00PM___ YOU MAY BE MONITORED AT HOSPITAL FOR UP TO 4 HOURS AFTER YOUR PROCEDURE. A visitor will be allowed to accompany the patient into the hospital. You and your visitor will be asked to self-screen and do not enter if you have any COVID symptoms. A mask is OPTIONAL within the hospital. Patients are to have no food or drink 6 hours prior to procedure time Driving will be restricted after the procedure, you must have a person to drive you home. Labs will be drawn in preop area and once reviewed, you will be taken to radiology area for procedure. When the procedure is completed, you will be taken to outpatient where you will be monitored for several hours. You may have one visitor in this area. Other than holding anti-coagulants, patient may take other medication(s) as scheduled. Prior to your appointment date patients are instructed to hold anti-coagulants after discussing with ordering provider to stop. If unable to discontinue anti-coagulants please notify radiologist. ? No aspirin or warfarin (Coumadin) for 7 days prior to the procedure. ? No clopidogrel (Plavix), ticagrelor (Brilinta), prasugrel (Effient) or dabigatran (Pradaxa) for 5 days prior to the procedure. ? No rivaroxaban (Xarelto), apixaban (Eliquis), dipyridamole (Aggrenox or Persantine) or cilostazol (Pletal) for 2 days prior to the procedure. Medications to discontinue per physician: __HOLD ASPIRIN FOR 7 DAYS PRIOR Date to take last dose: __04/29/23 Please leave all valuables, including medications, at home the day of procedure. The hospital will not accept responsibility for valuables. Wear comfortable, loose fitting clothing.? Follow any additional instructions given to you from ordering provider. Telephone instructions given to __PATIENT'S SON, CAROLINA and asked if any additional questions and then verbalized understanding. Patient advised to call scheduling provider office or registration scheduling [phone] if any additional questions.
[2023-05-21 09:33] VITALS: BMI 29.5
--- NOTE | 2023-05-21 09:34 | PC.NURSE ---
Pre Radiology instructions (RESCHEDULED R/T NOT STOPPING ASPIRIN PRIOR TO PROCEDURE) Report to the outpatient [facility] on date _05/28/23____ at time __11:00AM for procedure Time: _1:00PM___ YOU MAY BE MONITORED AT HOSPITAL FOR UP TO 4 HOURS AFTER YOUR PROCEDURE. A visitor will be allowed to accompany the patient into the hospital. You and your visitor will be asked to self-screen and do not enter if you have any COVID symptoms. A mask is OPTIONAL within the hospital. Patients are to have no food or drink 6 hours prior to procedure time Driving will be restricted after the procedure, you must have a person to drive you home. Labs will be drawn in preop area and once reviewed, you will be taken to radiology area for procedure. When the procedure is completed, you will be taken to outpatient where you will be monitored for several hours. You may have one visitor in this area. Other than holding anti-coagulants, patient may take other medication(s) as scheduled. Prior to your appointment date patients are instructed to hold anti-coagulants after discussing with ordering provider to stop. If unable to discontinue anti-coagulants please notify radiologist. ? No aspirin or warfarin (Coumadin) for 7 days prior to the procedure. ? No clopidogrel (Plavix), ticagrelor (Brilinta), prasugrel (Effient) or dabigatran (Pradaxa) for 5 days prior to the procedure. ? No rivaroxaban (Xarelto), apixaban (Eliquis), dipyridamole (Aggrenox or Persantine) or cilostazol (Pletal) for 2 days prior to the procedure. Medications to discontinue per physician: __HOLD ASPIRIN 7 DAYS PRE-PROCEDURE Date to take last dose: __05/20/23 Please leave all valuables, including medications, at home the day of procedure. The hospital will not accept responsibility for valuables. Wear comfortable, loose fitting clothing.? Follow any additional instructions given to you from ordering provider. Telephone instructions given to __SON-LES and asked if any additional questions and then verbalized understanding. Patient advised to call scheduling provider office or registration scheduling [phone] if any additional questions.
[2023-05-28] VITALS (8 sets, daily range): BP systolic 124–144; BP diastolic 52–73; PULSE 67–85; RESP 16–18; TEMP 36.1; O2SAT 95–99; BMI 30.5
--- NOTE | ~2023-05-28 | US_ITS ---
EXAMINATION: US thoracentesis DATE: 05/28/2023 13:14 INDICATION: Left pleural effusion TECHNIQUE: The procedure and its risks and benefits were discussed with the regions power of assistant prosecuting attorney . Potential risks discussed included bleeding, infection, and pneumothorax. The patient power of atto rney understood the risks and agreed to proceed. The skin was prepped and draped in sterile fashion. 1% lidocaine was used for local anesthesia. Under ultrasound guidance, a 5 Fr catheter with trochar w as advanced into the large left pleural effusion. Fluid was aspirated. The catheter was removed, and a dressing was applied. There were no immediate complications. FINDINGS: Ultrasound images demonstrate a large left pleural effusion and the catheter within the fluid. IMPRESSION: 1. Successful ultrasound-guided thoracentesis yielding 1100 mL of clear yellow fluid. Reviewed, dictated and finalized at location A.
--- NOTE | ~2023-05-28 | XR_ITS ---
EXAMINATION: [id number] DATE: 05/28/2023 13:02 INDICATION: Left pleural effusion status post thoracentesis. TECHNIQUE: A single frontal view of the chest was obtained. COMPARISON: Chest single view 04/13/2023, chest CT 03/14/2023 FINDINGS: There is a large left pleural effusion with near complete opacification of left hemithorax. There is volume loss of left hemithorax with leftward shift of mediastinum. No right-sided pleural e ffusion. No pneumothorax. The heart size is normal. IMPRESSION: 1. Near complete opacification of left hemithorax with new leftward shift of the mediastinum, likely a combination of large pleural effusion and atelectasis. Reviewed, dictated and finalized at location L. IMPRESSION: 1. Near complete opacification of left hemithorax with new leftward shift of th e mediastinum, likely a combination of large pleural effusion and atelectasis.
[2023-05-28 11:57] LABS: Mean Platelet Volume 11.6 fl (7.4-10.4); Platelet Count Result 299 k/mm3 (150-375)
[2023-05-28 12:10] LABS: Prothrombin Time 13.1 Seconds (11.1-14.7)
[2023-05-28 13:34] LABS: pH Pleural Fluid 7.486 (7.210-7.500)
[2023-05-28 14:41] LABS: Appearance Pleural Fluid Hazy (Clear); Pleural fluid source Pleural fluid
[2023-05-28 14:42] LABS: Color Pleural Fluid Yellow (Colorless); Lymphocytes Pleural Fluid 63 %; Macrophages Pleural Fluid 16 %; Mesothelial Cells Pleural Flui 15 %; Monocytes Pleural Fluid 6 %
[2023-05-28 14:43] LABS: Nucleated Cell Pleural Fluid 34 /uL (0-1000); RBC Pleural Fluid < 2000 /uL (0-0)
[2023-06-01 08:44] LABS: Glucose Pleural Fluid 132 mg/dL; LDH Pleural Fluid 97 U/L; Total Protein Pleural Fluid 3.9 g/dL
== END 2023-05-28 15:03 | disposition home or self-care (01) ==
PROVIDERS: PCP Family Medicine; Referring Provider Internal Medicine Critical Care Medicine; Visit Provider Radiology Diagnostic Radiology
DX: J90 Pleural effusion, not elsewhere classified (principal)
CPT/HCPCS: 32555; 36415; 82945; 83615; 83986; 84157; 85049; 85610; 89051

== ENCOUNTER 2023-06-18 10:27 | Outpatient (CLI) | payer MEDICARE, OTHER, SELFPAY ==
[2023-06-18 11:17] LABS: Basophils Percent Auto 0.2 % (0.2-1.2); Eosinophils Absolute Auto 0.1 K/mm3 (0-0.3); Eosinophils Percent Auto 1.9 % (0-4.4); Hematocrit 29.7 % (42.0-52.0); Hemoglobin 9.1 g/dL (14.0-18.0); Immature Granulocyte Absolute 0.03 K/mm3 (0.00-0.031); Immature Granulocyte Percent A 0.5 % (0-0.5); Lymphocytes Percent Auto 18.9 % (18.3-44.2); Mean Corpuscular HGB Conc 30.6 g/dl (32-36); Mean Platelet Volume 11.5 fl (7.4-10.4); Monocytes Absolute Auto 0.8 K/mm3 (0.1-0.6); Monocytes Percent Auto 14.2 % (2.6-8.5); Neutrophils Absolute Auto 3.8 K/mm3 (1.3-6.7); Neutrophils Percent Auto 64.3 % (45.5-73.1); Platelet Count Result 310 k/mm3 (150-375); Red Blood Count 2.94 M/mm3 (4.6-6.20); Red Cell Distribution Width 15.1 % (11.5-14.5); White Blood Count 5.8 K/mm3 (4.5-10.0)
[2023-06-18 11:44] LABS: Alanine Aminotransferase 15 U/L (6-50); Albumin Level 3.6 g/dL (3.5-5.1); Alkaline Phosphatase 66 U/L (38-126); Anion Gap 6 mmol/L (8-16); Aspartate Amino Transferase 23 U/L (17-59); Bilirubin,Total 0.4 mg/dL (0.2-1.3); Blood Urea Nitrogen 35 mg/dL (9-20); Calcium 8.7 mg/dL (8.4-10.2); Carbon Dioxide 27 mmol/L (22-30); Chloride 104 mmol/L (98-107); Estimated Glomerular Filt Rate 41; Glucose 134 mg/dL (65-110); Potassium 3.4 mmol/L (3.4-5.0); Sodium 137 mmol/L (137-145)
[2023-06-18 12:38] LABS: Appearance Urine Cloudy (Clear); Bacteria Urine None Seen /hpf; Bilirubin Urine Negative (Negative); Blood Urine Negative (Negative); Color Urine Yellow (Yellow); Glucose Urine UA Negative (Negative); Ketones Urine Trace mg/dL (Negative); Leukocyte Esterase Ur Negative LEU/UL (Negative); Need Manual Microscopic Reviewed; Nitrate Urine Negative (Negative); Protein Urine 1+ mg/dL (Negative); RBC Urine 0-2 /hpf (0-2); Specific Grav Ur 1.021 (1.001-1.035); Squamous Epithelial Cell Urine None seen /hpf (Few); WBC Urine 0-5 /hpf
[2023-06-18 12:42] LABS: Add Urine Microscopic? YES
== END 2023-06-18 10:28 | disposition home or self-care (01) ==
PROVIDERS: Physician Assistant; PCP Family Medicine; Visit Provider Internal Medicine Critical Care Medicine
DX: J90 Pleural effusion, not elsewhere classified (principal)
CPT/HCPCS: 36415; 80053; 81001; 85025

== ENCOUNTER 2023-06-24 13:08 | Outpatient (CLI) | payer MEDICARE, OTHER, SELFPAY ==
--- NOTE | ~2023-06-24 | US_ITS ---
EXAMINATION: US venous doppler [facility] DATE: 06/24/2023 14:01 INDICATION: Shortness of breath and lower limb swelling TECHNIQUE: Grayscale ultrasound images without and with compression and Doppler ultrasound images of the bilateral lower extremity veins were obtained. COMPARISON: None. FINDINGS: The visualized portions of right common femoral vein, profunda (deep) femoral vein, femoral vein, pop liteal vein, posterior tibial veins, peroneal veins, gastrocnemius vein and greater saphenous vein ou tflow are patent. The visualized portions of left common femoral vein, profunda femoral vein, femoral vein, popliteal v ein, posterior tibial veins, peroneal veins, gastrocnemius vein and greater saphenous vein outflow ar e patent. IMPRESSION: 1. No deep venous thrombosis in either lower limb. Reviewed, dictated and finalized at location A.
== END 2023-06-24 13:09 | disposition home or self-care (01) ==
LOC: ANHIMG 13:14
PROVIDERS: PCP Family Medicine; Visit Provider Physician Assistant
DX: R06.02 Shortness of breath (principal); R60.0 Localized edema
CPT/HCPCS: 93970

== ENCOUNTER 2023-06-26 18:23 | Emergency (ER) | payer MEDICARE, OTHER, SELFPAY ==
--- NOTE | 2023-06-26 18:42 | PC.NURSE ---
pt brought in by son and was told by [facility] pt is more SOB and could not get an accurate pulse ox reading. pt 97% in triage. pt denies any new SOB. son reports pt seems the same as he has been and is wanting to take him back to facility. pt denies any symptoms. son and pt educated on importance of being evaluated. pt and son still wanting to take pt back to facility and will return if pt's condition worsens. pt wheeled out of ED in stable condition by son.
== END 2023-06-26 18:42 | disposition left against medical advice (07) ==
LOC: ANHED 18:54
PROVIDERS: PCP Family Medicine
DX: Z53.21 Procedure and treatment not carried out due to patient leaving prior to being seen by health care provider (principal)
CPT/HCPCS: 99199

== ENCOUNTER 2023-06-28 08:58 | Emergency (ER) | payer MEDICARE, OTHER, SELFPAY ==
[2023-06-28] VITALS (39 sets, daily range): BP systolic 88–116; BP diastolic 32–81; PULSE 70–85; RESP 14–24; TEMP 36.3; O2SAT 88–99
--- NOTE | ~2023-06-28 | CT_ITS ---
EXAMINATION: CT brain wo con INDICATION: Headache COMPARISON: 03/28/2019 TECHNIQUE: Standard unenhanced head CT. The dose-length product (DLP) was 832.33 mGy-cm. The mA was a djusted according to patient size. Iterative reconstruction technique was employed. FINDINGS: Motion artifact slightly limits the examination. No acute intraparenchymal hemorrhage. No e vidence of mass lesion. No evidence of acute infarction. There is moderate periventricular and subcor tical hypodensity probably related to small vessel ischemic disease with interval worsening. There is moderate prominence of the sulci and ventricles related to cerebral atrophy. Intracranial calcified cerebral atherosclerosis is noted. No extra-axial collections. No mass effect or midline shift. Sahu es in the globes are likely from ocular lens surgery. The visualized sinuses and mastoid air cells ar e well aerated. IMPRESSION: 1. No acute intracranial abnormality comments sensitivity slightly limited by motion. 2. Nonspecific white matter changes with interval worsening, consistent with chronic small vessel isc hemic disease. Reviewed, dictated and finalized at location A. IMPRESSION: 1. No acute intracranial abnormality comments sensitivity slightly limited by m otion. 2. Nonspecific white matter changes with interval worsening, consistent with ch ronic small vessel ischemic disease.
--- NOTE | ~2023-06-28 | CT_ITS ---
EXAMINATION: CT cervical spine wo con DATE: 06/28/2023 10:06 INDICATION: Head injury TECHNIQUE: Computed tomography (CT) of the cervical spine was performed without intravenous contrast. The dose-length product (DLP) was 414.78 mGy-cm. Automated exposure control and iterative reconstruc tion technique were employed. COMPARISON: None FINDINGS: There are 2 mm of retrolisthesis of C3 on C4. Alignment is otherwise normal. There is moder ate loss of intervertebral disc space height at C3-4. There is mild loss of disc space height at C5-C 6. The vertebral body heights are maintained. There is no fracture. The odontoid process is intact. T here is severe uncovertebral joint osteoarthritis at C3-4. There is multilevel moderate facet joint o steoarthritis of the cervical spine. There are bilateral pleural effusions, large in the left. There is near complete atelectasis of the visualized left upper lobe. IMPRESSION: 1. Severe cervical spondylosis at C3-4 without acute findings. Reviewed, dictated and finalized at location A.
--- NOTE | ~2023-06-28 | XR_ITS ---
EXAMINATION: XR chest 1V portable INDICATION: Left pleural effusion TECHNIQUE: Portable AP chest at 0948 hours COMPARISON: 05/28/2023 FINDINGS: There is complete opacification of the left hemithorax with minimal change since the compar camila examination. The right lung is clear. There is no pneumothorax. The cardiac silhouette is obscur ed. IMPRESSION: 1. Complete opacification of the left hemithorax with minimal change, likely combination of left pleu ral effusion and atelectasis. Reviewed, dictated and finalized at location A. IMPRESSION: 1. Complete opacification of the left hemithorax with minimal change, likely co mbination of left pleural effusion and atelectasis.
--- NOTE | 2023-06-28 09:14 | ECG_ITS ---
Measurements Intervals Cameron Rate: 78 P: 81 NV: 188 QRS: -32 QRSD: 98 T: 52 QT: 396 QTc: 451 Interpretive Statements SINUS RHYTHM ATRIAL COUPLET LOW QRS VOLTAGE IN PRECORDIAL LEADS INCOMPLETE RIGHT BUNDLE BRANCH BLOCK BORDERLINE R WAVE PROGRESSION, ANTERIOR LEADS BORDERLINE T WAVE ABNORMALITY- DIFFUSE LEADS BORDERLINE ECG COMPARED TO ECG 03/14/2023 14:22:33 NO SIGNIFICANT CHANGES Electronically Signed On 06-28-2023 16:38:41 CDT by Zaki Herrmann D.O.
--- NOTE | 2023-06-28 09:18 | ED.GENADULT ---
HPI - General Adult General Chief complaint: Weakness <Emeka Patrick PA-C - Last Filed: 06/28/23 18:24> Stated complaint: weakness <Emeka Patrick PA-C - Last Filed: 06/28/23 18:24> Time Seen by Provider: 06/28/23 09:16 <Emeka Patrick PA-C - Last Filed: 06/28/23 18:24> Source: patient, family and EMS <SAMMIE Robles Last Filed: 06/28/23 18:24> Mode of arrival: EMS <SAMMIE Robles Last Filed: 06/28/23 18:24> Limitations: dementia <Emeka Patrick PA-C - Last Filed: 06/28/23 18:24> History of Present Illness HPI narrative: This is an 88-year-old male with PMH of CKD, T2DM, HTN, left pleural effusion who presents to the ED via EMS from [facility] with chief complaint of generalized weakness. EMS states that patient was getting out of bed and had a controlled fall to the ground. EMS and staff are unsure if he had a head injury or any LOC. They state he is A&O x1 which is his baseline. EMS states that patient was hypoxic in the 80s on room air which she normally is on so they placed him on 2 L and he cruz into the 90s. Nursing notes a strong odor coming from the urine in his depends. Patient is only able to tell me about a little bit of posterior head and neck pain. Denies any further site of pain. He is unable to tell me about why he is here or what happened this morning. He tells me his full name. Per chart review: Patient is being worked up for progressive left-sided pleural effusion with pulmonology. Pulmonology has talked about going to cardiothoracic surgery at [place] for definitive management of this effusion. Family does not feel that he would tolerate a chest catheter very well. He was seen here recently in the radiology department for DVT studies of his lower limbs for ongoing lower extremity edema. DVT studies are negative. He is also being worked up for ongoing anemia with his PCP. Patient's son and his are here who are supplementing history as well. <SAMMIE Robles Last Filed: 06/28/23 18:24> Related Data Home medications: Home Medications Medication Instructions Recorded Confirmed krill 1,000 cap PO DAILY 03/19/21 06/09/23 [id number] 1,500 mg-165 mg-67.5 mg capsule (Krill Oil (Fitzpatrick 3 and 6)) amlodipine 5 mg tablet 5 mg PO QAM 03/14/23 06/09/23 buspirone 10 mg tablet 10 mg PO BID 03/14/23 06/09/23 losartan 100 mg tablet 100 mg PO DAILY 03/14/23 06/09/23 alendronate 70 mg tablet 70 mg PO WEEKLY 04/29/23 06/09/23 aspirin 325 mg tablet 325 mg PO DAILY 04/29/23 06/09/23 fluoxetine 10 mg capsule 10 mg PO DAILY 04/29/23 06/09/23 donepezil 5 mg tablet 5 mg PO 06/09/23 06/09/23 pioglitazone 30 mg tablet 30 mg PO 06/09/23 06/09/23 <Emeka Patrick PA-C - Last Filed: 06/28/23 18:24> Allergies/adverse reactions: Allergies Allergy/AdvReac Type Severity Reaction Status Date / Time iodine Allergy Mild Hives Verified 06/09/23 12:56 SHELLFISH Allergy Mild hives Uncoded 06/09/23 12:56 <Emeka Patrick PA-C - Last Filed: 06/28/23 18:24> Review of Systems Review of Systems: ROS unobtainable: Yes unobtainable due to mental status <Emeka Patrick PA-C - Last Filed: 06/28/23 18:24> [facility] Past Medical History Medical History: Medical History Benign essential hypertension Dementia Mixed hyperlipidemia Osteoporosis Type 2 diabetes mellitus without complication, without long-term current use of insulin Vitamin D deficiency <Emeka Patrick PA-C - Last Filed: 06/28/23 18:24> Surgical History Surgical History: Surgical History 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 History of cataract extraction <Emeka Patrick PA-C - Last Filed: 06/28/23 18:24> Family History Family History: Family History (Reviewed 06/09/23 @ 12:57 by Crys Hall
[2023-06-28 10:22] LABS: Appearance Urine Clear (Clear); Bilirubin Urine Negative (Negative); Blood Urine Negative (Negative); Color Urine Yellow (Yellow); Glucose Urine UA Negative (Negative); Ketones Urine Trace mg/dL (Negative); Leukocyte Esterase Ur Negative LEU/UL (Negative); Nitrate Urine Negative (Negative); Protein Urine Negative (Negative); Specific Grav Ur 1.018 (1.001-1.035); Urobilinogen Urine 0.2 mg/dL (<2.0)
[2023-06-28 10:29] LABS: Add Urine Microscopic? NO
[2023-06-28 11:37] LABS: Alanine Aminotransferase 18 U/L (6-50); Albumin Level 2.6 g/dL (3.5-5.1); Alkaline Phosphatase 46 U/L (38-126); Anion Gap 11 mmol/L (8-16); Aspartate Amino Transferase 29 U/L (17-59); Bilirubin,Total 0.3 mg/dL (0.2-1.3); Blood Urea Nitrogen 67 mg/dL (9-20); Calcium 8.1 mg/dL (8.4-10.2); Carbon Dioxide 24 mmol/L (22-30); Chloride 109 mmol/L (98-107); Estimated CRCL calculation 30 ml/min; Estimated Glomerular Filt Rate 41; Glucose 162 mg/dL (65-110); Potassium 3.6 mmol/L (3.4-5.0); Sodium 144 mmol/L (137-145)
[2023-06-28 11:45] LABS: Immature Granulocyte Absolute 0.11 K/mm3 (0.00-0.031); Immature Granulocyte Percent A 1.2 % (0-0.5); Lymphocytes Absolute Auto 1.11 K/mm3 (0.9-3.2); Lymphocytes Percent Auto 11.9 % (18.3-44.2); Mean Corpuscular HGB Conc 29.6 g/dl (32-36); Mean Corpuscular Hemoglobin 30.8 pg (26-34); Mean Corpuscular Volume 103.8 fl (80-100); Monocytes Absolute Auto 1.2 K/mm3 (0.1-0.6); Monocytes Percent Auto 12.7 % (2.6-8.5); Neutrophils Absolute Auto 6.9 K/mm3 (1.3-6.7); Neutrophils Percent Auto 74.2 % (45.5-73.1); Nucleated Red Blood Cells Absolute Auto 0.1 K/mm3 (0.0-0.012); Platelet Count Result 239 k/mm3 (150-375); Red Blood Count 1.04 M/mm3 (4.6-6.20); Red Cell Distribution Width 17.1 % (11.5-14.5); White Blood Count 9.4 K/mm3 (4.5-10.0)
[2023-06-28 11:50] LABS: Hemoglobin 3.2 g/dL (14.0-18.0)
[2023-06-28 11:52] LABS: Hematocrit 10.8 % (42.0-52.0)
[2023-06-28 11:56] LABS: INR 1.2; Prothrombin Time 16.2 Seconds (11.1-14.7)
[2023-06-28 12:01] LABS: NT Pro B Type Natriuretic Pept 3230 pg/mL (19.9-100)
[2023-06-28 12:30] LABS: Hypochromasia 1+ (NORMAL); Platelet Estimate Adequate (Adequate)
[2023-06-28 12:31] LABS: Anisocytosis 1+ (NORMAL); Schistocytes None Seen (NORMAL)
--- NOTE | 2023-06-28 14:06 | PCCCNOTE ---
Called by ED to set up hospice and have hospice determine GIP qualification. [facility] ([facility]) contacted at 1400 and will have person out shortly to determine eligibility.
--- NOTE | 2023-06-28 15:34 | PCCCNOTE ---
Per hospice pt does not quailfy for GIP admission. [facility] is able to admit at [facility] and coordinate care.
== END 2023-06-28 17:35 ==
PROVIDERS: Emergency Provider Physician Assistant; PCP Family Medicine
DX: D64.9 Anemia, unspecified (principal); J90 Pleural effusion, not elsewhere classified; E11.22 Type 2 diabetes mellitus with diabetic chronic kidney disease; I12.9 Hypertensive chronic kidney disease with stage 1 through stage 4 chronic kidney disease, or unspecified chronic kidney disease; N18.9 Chronic kidney disease, unspecified; F03.90 Unspecified dementia, unspecified severity, without behavioral disturbance, psychotic disturbance, mood disturbance, and anxiety; E78.2 Mixed hyperlipidemia; E55.9 Vitamin D deficiency, unspecified; M81.0 Age-related osteoporosis without current pathological fracture; Z87.891 Personal history of nicotine dependence; Z89.022 Acquired absence of left finger(s); Z89.021 Acquired absence of right finger(s); Z98.49 Cataract extraction status, unspecified eye; Z79.82 Long term (current) use of aspirin; R00.8 Other abnormalities of heart beat; I45.10 Unspecified right bundle-branch block; R94.31 Abnormal electrocardiogram [ECG] [EKG]
CPT/HCPCS: 36415; 70450; 71045; 72125; 80053; 81003; 83880; 85025; 85610; 93005; 99284